=== PATIENT | female | born 1965 | race Caucasian/White ===

== ENCOUNTER → 2017-03-15 | Day surgery (SDC) | payer OTHER ==
[~2017-03-15] MED LIST: LIDOCAINE 2% JELLY 5 ML TUBE ONE
== END ==
LOC: END 07:20
PROVIDERS: ATTEND Internal Medicine Gastroenterology
PROC: 4A0B7BZ Measurement of Gastrointestinal Pressure, Via Natural or Artificial Opening (ICD-10-PCS; principal; 2017-03-15)
DX: K44.9 Diaphragmatic hernia without obstruction or gangrene (principal)
CPT/HCPCS: 91010